=== PATIENT | female | born 1980 | race Hispanic/Latino ===

== ENCOUNTER 2018-01-29 03:36 | Observation (INO) | payer BC, OTHER ==
[2018-01-29] VITALS (7 sets, daily range): BP systolic 116–124; BP diastolic 63–75
[~2018-01-29] VITALS: Ht 172.7 cm; Wt 91.2 kg
[2018-01-29] MEDS ORDERED: METHYLPREDNISOLONE SOD SUCC 125 MG/2ML VIAL ONE (03:41)
[2018-01-29] MEDS ORDERED: EPINEPHRINE HCL INJ 1 MG/ML AMP ONE (03:42)
[2018-01-29] MEDS ORDERED: FAMOTIDINE 20 MG/2 ML VIAL IV ONE (03:42)
[2018-01-29] MEDS ORDERED: DIPHENHYDRAMINE HCL INJ 50 MG/ML VIAL ONE (03:42)
[2018-01-29] MEDS ORDERED: ALBUTEROL SULF 0.083% NEB SOLN 3 ML NEB ONE (03:44)
[2018-01-29] MEDS ORDERED: SODIUM CHLORIDE 0.9% 1000ML 1,000 ML ONE (03:45)
[2018-01-29] MEDS ORDERED: EPINEPHRINE 0.3 MG/0.3 ML PEN.INJCTR SC STA (03:52)
[2018-01-29] MEDS ORDERED: METHYLPREDNISOLONE SOD SUCC 125 MG/2ML VIAL IV STA (03:52)
[2018-01-29] MEDS ORDERED: SODIUM CHLORIDE 0.9% 1000ML 1,000 ML IV STA (03:52)
[2018-01-29] MEDS ORDERED: FAMOTIDINE 20 MG/2 ML VIAL IV STA (03:52)
[2018-01-29] MEDS ORDERED: DIPHENHYDRAMINE HCL INJ 50 MG/ML VIAL IV ONE (04:00)
[2018-01-29] MEDS: ALBUTEROL SULF 0.083% NEB SOLN 3 ML NEB NEB PRN ×2 (04:00→12:40)
[2018-01-29 04:18] LABS: BASOPHILS % 0.3 % (0.0-1.0); EOSINOPHILS # (AUTO) 0.2 (0.0-0.4); EOSINOPHILS % 1.6 % (0.0-6.0); HEMATOCRIT 41.5 % (34.2-44.1); HEMOGLOBIN 13.4 g/dL (12.0-16.0); LYMPHOCYTES % 50.5 % (18.0-39.1); MEAN CORPUSCULAR HGB CONC 32.3 g/dL (31-35); MONOCYTES # (AUTO) 0.7 (0.2-0.8); MONOCYTES % 6.9 % (4.4-11.3); NEUTROPHILS % 40.4 % (38.7-80.0); PLATELET COUNT 244 x10e3/uL (140-360); RED BLOOD COUNT 4.46 x10e6/uL (3.6-5.1); RED CELL DISTRIBUTION WIDTH 12.8 % (11.7-14.4)
[2018-01-29 04:33] LABS: INR 1.27; PROTHROMBIN TIME 14.9 seconds (11.9-14.5)
[2018-01-29 04:35] LABS: PARTIAL THROMBOPLASTIN TIME 50.7 seconds (23.8-35.5)
[2018-01-29 04:43] LABS: ALANINE AMINOTRANSFERASE 24 IU/L (0-55); ALBUMIN 3.2 g/dL (3.5-5.0); ALBUMIN/GLOBULIN RATIO 0.9 (0.8-2.0); ALKALINE PHOSPHATASE 137 IU/L (40-150); ANION GAP 15.6 mmol/L (8-16); BLOOD UREA NITROGEN 16 mg/dL (7-26); BUN/CREATININE RATIO 19 (6-25); CALCIUM 8.7 mg/dL (8.4-10.2); CARBON DIOXIDE 18 mmol/L (22-29); CHLORIDE 110 mmol/L (98-107); CREATINE KINASE 100 IU/L (29-168); CREATININE, SERUM 0.83 mg/dL (0.57-1.11); EST GLOMERULAR FILTRATION RATE > 60 ML/MIN (60-); GLUCOSE 101 mg/dL (74-118); MAGNESIUM 2.1 MG/DL (1.3-2.1); POTASSIUM 3.6 mmol/L (3.5-5.1); SODIUM 140 mmol/L (136-145)
[2018-01-29] MEDS: SODIUM CHLORIDE 0.9% 1000ML 1,000 ML IV SCH ×2 (05:44→14:00)
[2018-01-29] MEDS ORDERED: DIPHENHYDRAMINE HCL INJ 50 MG/ML VIAL IV SCH (09:00)
--- NOTE | 2018-01-29 09:27 | History and Physical ---
Patient was admitted through the emergency room with acute allergic reaction after eating flautas in a restaurant. Facial swelling, throat swelling, and shortness of breath. Feeling faint and chest tightness. ALLERGIES: SHE IS NOTED TO HAVE AN ALLERGY TO CASHEWS. NO OTHER NUTS, BUT INCLUDING PECANS. 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 Had been previously prescribed an EpiPen and Benadryl, but they were out of date. Still complaining of nasal congestion and some chest tightness. MEDICATIONS: Takes no regular medications. Nonsmoker. No alcohol. She is somewhat swollen in the face and eyes. Some chest discomfort and heavy, but has improved since the emergency room. PHYSICAL EXAMINATION VITAL SIGNS: Temperature 99, pulse 84, respirations 20, blood pressure 116/64. HEENT: Moderate facial swelling and periorbital edema. LUNGS: Clear. HEART: Regular rhythm. ABDOMEN: Nontender. EXTREMITIES: Not edematous. IMPRESSION: Allergic reaction to wheat glumes. She was warned not to eat out and avoid nuts, and nut-containing products. She was advised to see an blasting helper. Carry EpiPen and Benadryl. Continue moderate dose steroids, Benadryl, Pepcid. Was treated in the emergency room with epinephrine, Benadryl, Solu-Medrol, and Pepcid. Slowly improving. Angioneurotic edema with bronchospasm. Presumed peanut allergy. Job#: [id number] MIREILLE
[2018-01-29] MEDS: FAMOTIDINE 20 MG/2 ML VIAL IV SCH ×2 (09:30→16:31)
[2018-01-29] MEDS ORDERED: METHYLPREDNISOLONE SOD SUCC 40 MG/ML VIAL IV SCH (10:00)
[2018-01-29] MEDS ORDERED: METHYLPREDNISOLONE SOD SUCC 125 MG/2ML VIAL IV SCH ×2 (10:00)
--- NOTE | 2018-01-29 10:21 | Diagnostic Imaging Report ---
PROCEDURE: Frontal and lateral views of the chest. COMPARISON: Chest radiograph 06/08/2008. INDICATIONS: ACUTE BRONCHOSPASM FINDINGS: Lines/tubes: None. Lungs: Low lung volumes. No evidence of pneumonia or pulmonary edema. Mild bibasilar atelectasis. Mild diffuse bronchial wall thickening. Pleura: There is no pleural effusion or pneumothorax. Heart and mediastinum: The cardiomediastinal silhouette is unremarkable. Bones: No acute bony abnormality. IMPRESSION: No evidence of pneumonia. Mild bronchial wall thickening which could reflect bronchitis. Dictated by: ANTWAN ARRIOLA M.D. on 01/29/2018 at 9:53 Electronically approved by: ANTWAN ARRIOLA M.D. on 01/29/2018 at 9:53
[2018-01-29] MEDS ORDERED: DIPHENHYDRAMINE HCL INJ 50 MG/ML VIAL IV PRN (13:30)
[2018-01-29] MEDS: DIPHENHYDRAMINE HCL INJ 50 MG/ML VIAL IV SCH ×2 (14:27→20:28)
[2018-01-29] MEDS: PREDNISOLONE ACETATE 1% OPTH SUSP 5 ML BTL OP SCH (16:31)
[2018-01-29] MEDS: FLUTICASONE PROPIONATE NASAL SPRAY NS SCH (16:31)
[2018-01-29] MEDS: METHYLPREDNISOLONE SOD SUCC 40 MG/ML VIAL IV SCH (17:00)
[2018-01-30] VITALS: BP 108/68
[2018-01-30] MEDS: SODIUM CHLORIDE 0.9% 1000ML 1,000 ML IV SCH ×3 (01:16→12:46)
[2018-01-30] MEDS: DIPHENHYDRAMINE HCL INJ 50 MG/ML VIAL IV SCH ×4 (02:12→21:17)
[2018-01-30] MEDS: METHYLPREDNISOLONE SOD SUCC 40 MG/ML VIAL IV SCH ×3 (02:12→17:00)
[2018-01-30 04:00] VITALS: BP 110/60
[2018-01-30 05:54] LABS: ANION GAP 11.1 mmol/L (8-16); BLOOD UREA NITROGEN 9 mg/dL (7-26); BUN/CREATININE RATIO 12 (6-25); CALCIUM 8.6 mg/dL (8.4-10.2); CARBON DIOXIDE 20 mmol/L (22-29); CHLORIDE 109 mmol/L (98-107); CREATININE, SERUM 0.73 mg/dL (0.57-1.11); EST GLOMERULAR FILTRATION RATE > 60 ML/MIN (60-); GLUCOSE 147 mg/dL (74-118); POTASSIUM 4.1 mmol/L (3.5-5.1); SODIUM 136 mmol/L (136-145)
[2018-01-30 06:50] LABS: BASOPHILS % 0.1 % (0.0-1.0); HEMATOCRIT 36.5 % (34.2-44.1); LYMPHOCYTES # (AUTO) 1.3 (1.0-3.2); LYMPHOCYTES % 5.8 % (18.0-39.1); MEAN CORPUSCULAR HEMOGLOBIN 29.9 pg (28-32); MEAN CORPUSCULAR HGB CONC 33.4 g/dL (31-35); MONOCYTES # (AUTO) 0.4 (0.2-0.8); MONOCYTES % 1.8 % (4.4-11.3); NEUTROPHILS # (AUTO) 19.5 (2.1-6.9); NEUTROPHILS % 91.5 % (38.7-80.0); PLATELET COUNT 267 x10e3/uL (140-360); RED BLOOD COUNT 4.08 x10e6/uL (3.6-5.1); RED CELL DISTRIBUTION WIDTH 12.8 % (11.7-14.4)
[2018-01-30 06:53] LABS: MEAN CORPUSCULAR VOLUME 89.5 fL (81-99)
[2018-01-30 06:54] LABS: HEMOGLOBIN 12.2 g/dL (12.0-16.0)
[2018-01-30] MEDS: ALBUTEROL SULF 0.083% NEB SOLN 3 ML NEB NEB PRN (07:00)
[2018-01-30 07:59] VITALS: BP 114/61
[2018-01-30] MEDS: FAMOTIDINE 20 MG/2 ML VIAL IV SCH ×2 (08:53→16:11)
[2018-01-30] MEDS: FLUTICASONE PROPIONATE NASAL SPRAY NS SCH ×2 (08:54→16:11)
[2018-01-30] MEDS: PREDNISOLONE ACETATE 1% OPTH SUSP 5 ML BTL OP SCH ×2 (08:54→16:11)
[2018-01-30 12:12] VITALS: BP 119/77
[2018-01-30 16:02] VITALS: BP 118/64
[2018-01-30 20:17] VITALS: BP 132/78
[2018-01-31] VITALS (10 sets, daily range): BP systolic 98–140; BP diastolic 57–81
[2018-01-31] MEDS: METHYLPREDNISOLONE SOD SUCC 40 MG/ML VIAL IV SCH (02:21)
[2018-01-31] MEDS: SODIUM CHLORIDE 0.9% 1000ML 1,000 ML IV SCH ×2 (02:21→20:56)
[2018-01-31] MEDS: DIPHENHYDRAMINE HCL INJ 50 MG/ML VIAL IV SCH (02:42)
[2018-01-31 05:23] LABS: BASOPHILS % 0.1 % (0.0-1.0); HEMATOCRIT 36.9 % (34.2-44.1); HEMOGLOBIN 12.1 g/dL (12.0-16.0); LYMPHOCYTES # (AUTO) 1.6 (1.0-3.2); LYMPHOCYTES % 7.6 % (18.0-39.1); MEAN CORPUSCULAR HEMOGLOBIN 29.8 pg (28-32); MEAN CORPUSCULAR HGB CONC 32.8 g/dL (31-35); MEAN CORPUSCULAR VOLUME 90.9 fL (81-99); MONOCYTES # (AUTO) 0.6 (0.2-0.8); MONOCYTES % 2.8 % (4.4-11.3); NEUTROPHILS # (AUTO) 18.5 (2.1-6.9); NEUTROPHILS % 88.6 % (38.7-80.0); PLATELET COUNT 270 x10e3/uL (140-360); RED BLOOD COUNT 4.06 x10e6/uL (3.6-5.1)
[2018-01-31 05:45] LABS: ANION GAP 12.4 mmol/L (8-16); BLOOD UREA NITROGEN 18 mg/dL (7-26); BUN/CREATININE RATIO 23 (6-25); CALCIUM 8.6 mg/dL (8.4-10.2); CARBON DIOXIDE 21 mmol/L (22-29); CHLORIDE 110 mmol/L (98-107); EST GLOMERULAR FILTRATION RATE > 60 ML/MIN (60-); GLUCOSE 126 mg/dL (74-118); POTASSIUM 4.4 mmol/L (3.5-5.1); SODIUM 139 mmol/L (136-145)
[2018-01-31] MEDS ORDERED: AZITHROMYCIN 250 MG TAB PO NR (08:30)
[2018-01-31] MEDS ORDERED: DIPHENHYDRAMINE HCL 25 MG CAP PO PRN (08:30)
[2018-01-31] MEDS: AZITHROMYCIN 250 MG TAB PO SCH (08:47)
[2018-01-31] MEDS: FAMOTIDINE 20 MG/2 ML VIAL IV SCH ×2 (09:27→16:45)
[2018-01-31] MEDS: PREDNISONE 20 MG TAB PO SCH ×2 (09:28→20:38)
[2018-01-31] MEDS: PREDNISOLONE ACETATE 1% OPTH SUSP 5 ML BTL OP SCH ×2 (09:28→16:33)
[2018-01-31] MEDS: FLUTICASONE PROPIONATE NASAL SPRAY NS SCH ×2 (09:28→16:33)
[2018-02-01 00:05] VITALS: BP 126/67
[2018-02-01 04:26] VITALS: BP 108/63
[2018-02-01 07:34] VITALS: BP 122/83
[2018-02-01 07:41] VITALS: BP 122/83
[2018-02-01] MEDS: PREDNISOLONE ACETATE 1% OPTH SUSP 5 ML BTL OP SCH (08:52)
[2018-02-01] MEDS: FLUTICASONE PROPIONATE NASAL SPRAY NS SCH (08:52)
[2018-02-01] MEDS: PREDNISONE 20 MG TAB PO SCH (09:01)
[2018-02-01] MEDS: FAMOTIDINE 20 MG/2 ML VIAL IV SCH (09:01)
[2018-02-01] MEDS: AZITHROMYCIN 250 MG TAB PO SCH (09:01)
[2018-02-01 12:16] VITALS: BP 105/60
[2018-02-01] MEDS ORDERED: AZITHROMYCIN250 MG PO (12:57)
[2018-02-01] MEDS ORDERED: Diphenhydramine Hcl PO (12:57)
[2018-02-01] MEDS ORDERED: Fluticasone Propionate NS (12:57)
[2018-02-01] MEDS ORDERED: EPINEPHRINE 11 MG/ML SC (12:57)
[2018-02-01] MEDS ORDERED: PREDNISONE20 MG PO (12:57)
[2018-02-01] MEDS ORDERED: EPINEPHRIN0.3 MG/0.3 SC (13:26)
[2018-02-01] MEDS ORDERED: ZITHROMAX250 MG (13:27)
[2018-02-01 14:10] LABS: BASOPHILS % 0.2 % (0.0-1.0); HEMATOCRIT 40.3 % (34.2-44.1); HEMOGLOBIN 13.1 g/dL (12.0-16.0); LYMPHOCYTES # (AUTO) 1.9 (1.0-3.2); LYMPHOCYTES % 15.1 % (18.0-39.1); MEAN CORPUSCULAR HEMOGLOBIN 29.5 pg (28-32); MEAN CORPUSCULAR HGB CONC 32.5 g/dL (31-35); MEAN CORPUSCULAR VOLUME 90.8 fL (81-99); MONOCYTES # (AUTO) 0.7 (0.2-0.8); MONOCYTES % 5.7 % (4.4-11.3); NEUTROPHILS # (AUTO) 9.9 (2.1-6.9); NEUTROPHILS % 77.7 % (38.7-80.0); PLATELET COUNT 288 x10e3/uL (140-360); RED BLOOD COUNT 4.44 x10e6/uL (3.6-5.1); RED CELL DISTRIBUTION WIDTH 12.8 % (11.7-14.4)
--- NOTE | 2018-02-01 14:56 | Discharge Summary ---
Patient was admitted through the emergency room with acute allergic reaction after eating flautas in a restaurant with facial swelling, throat swelling, shortness of breath, chest tightness and feeling faint. She knows she is allergic to cashews and pecans. 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 She was treated with steroids, epinephrine, Pepcid, and Benadryl and gradually improved. She was felt to have angioneurotic edema, presumably related to peanuts or peanut oil. She did slowly improve. There was some chest tightness. There were infiltrates on chest x-ray, felt to be likely allergic, but she did have slight elevation of fever and significant elevation in white count. She was started on Zithromax. The patient gradually improved and is discharged. She was given a prescription for EpiPen. Benadryl hekw-pde-gqyahhb can be obtained without prescription. She was warned to avoid nuts and to see an gluer and slicer hand for further evaluation of her apparent peanut allergy and other nut allergies. She was advised not to eat in restaurants until she can be further evaluated by the gluer and slicer hand and that it might be best for her to avoid restaurants in the future in any event. She was discharged much improved at her request and given a prescription for azithromycin and epinephrine and Benadryl. JOSE BLUE MD Job#: [id number]
== END 2018-02-01 14:16 | disposition home or self-care (01) ==
LOC: ER 03:36 → IMCU 04:46
PROVIDERS: ADMIT Internal Medicine; ATTEND Internal Medicine
DX: T78.3XXA Angioneurotic edema, initial encounter (principal); Z91.010 Allergy to peanuts; J98.01 Acute bronchospasm; T78.1XXA Other adverse food reactions, not elsewhere classified, initial encounter
CPT/HCPCS: 36415 ×4; 71046; 80048 ×2; 80053; 82550; 82553; 83735; 84484; 84702; 85025 ×4; 85610; 85730; 93005; 94640 ×3; 96360; 96374; 96375; 99284; G0378 ×4; J0171; J1200 ×3; J2920 ×3; J2930; J7030 ×3

== ENCOUNTER 2020-05-12 18:29 | Emergency (ER) | payer BC, OTHER ==
[~2020-05-12] VITALS: Ht 170.2 cm; Wt 86.2 kg
[~2020-05-12 18:29] MED LIST: AZITHROMYCIN250 MG PO; Diphenhydramine Hcl PO; EPINEPHRIN0.3 MG/0.3 SC; EPINEPHRINE 11 MG/ML SC; Fluticasone Propionate NS; PREDNISONE20 MG PO; ZITHROMAX250 MG
[2020-05-12] MEDS ORDERED: EPINEPHRINE 2.25% INH NEBU SOL 0.5 ML VIAL INH STA (18:37)
[2020-05-12] MEDS ORDERED: FAMOTIDINE 20 MG/2 ML VIAL IV STA (18:43)
--- NOTE | 2020-05-12 18:54 | NUR ---
Pt able to speak clearly without getting SOB. No stridor noted while patient speaking.
[2020-05-12] MEDS ORDERED: FAMOTIDINE 20 MG/2 ML VIAL IV ONE (18:57)
--- OUTSIDE RECORDS SUMMARY | 2020-05-12 18:57 | XMS REPORT | Continuity of Care Document ---
Author Author [facility] t Organization [facility] Address [address] [place] [address] Phone Unavailable Care Team Providers Care Township Clerk Name Role Phone NONSTAFF PCP Unavailable KAROL, GONZALEZ Attphys Unavailable KAROL, GONZALEZ Admphys Unavailable Payers Payer Name Policy Type Policy Number Effective Date Expiration Date [facility] [id number] I [facility] Problems Condition Name Condition Details Condition Category Status Onset Date Resolution Date Last Treatment Date Treating Clinician Comments Source Acute bronchospasm Acute bronchospasm Problem Active [facility] Allergic angioedema Allergic angioedema Problem Active [facility] Allergic reaction Allergic reaction Problem Active [facility] Allergies, Adverse Reactions, Alerts Allergy Name Allergy Type Status Severity Reaction(s) Onset Date Inacti ve Date Treating Clinician Comments Source Peanuts Allergy to Substance Active Severe 2018-01-29 00:00:00 [facility] peanut FA Active SV 2013-07-14 00:00:00 [facility] Medications Ordered Medication Name Filled Medication Name Start Date Stop Da te Current Medication? Ordering Clinician Indication Dosage Frequency Signature (SIG) Comments Components Source Azithromycin (Zithromax) 250 Mg Tablet Azithromycin (Zithromax) 250 Mg Tablet Yes Daily [facility] Epinephrine 0.3 Mg/0.3 Ml Pen.injctr Epinephrine 0.3 Mg/0.3 Ml Pen. injctr Yes as needed for Allergy CH I [facility] Procedures Procedure Date / Time Performed Performing Clinician [facility] e X-ray of chest, two views 2018-01-29 00:00:00 JOSE BLUE [facility] Encounters Start Date/Time End Date/Time Encounter Type Admission Type Attendi [facility] Care Department Encounter ID Source 2018-01-29 04:46:00 2018-02-01 14:16:00 Discharged Inpatient (obs) [id number] Results Test Description Test Time Test Comments Results Result Comments Source Novel Coronavirus 2018 nCoV 2019-12-04 15:11:00 Test Item Novel Coronavirus 2018 nCoV (test code = COVID19) Positive Nega tive A Performed by: [facility] [address], [address] [place], [place] [address] CLIA#: [id number] Does patient have the clinical criteria consistent with COVID-19? YIs the patien t going to be discharged home? YHCG SERUM [id number] 07:11:00* Test Item Value Reference Range Interpretation Comments HCG SERUM QUAL (test code = HCGQL) SERUM NEGATIVE NEGATIVE - XR CHEST 1 [id number] 06:37:00 FAX: Tucker Elkins MD [phone] Terry: St: REG Name: KAREN CAMPA [facility] : [birth year] Age/S: 39/F [address] [place] [address] Blvd Unit #: [id number] Loc: [place] [address] Phys: Tucker Elkins MD Acct: [id number] Dis Date: Status: REG ER PHONE #: [phone] Exam Date: 12/02/2019 0630 FAX #: [phone] Reason: cough, SOB, fever EXAMS: CPT CODE: [id number] XR CHEST 1 V 19940 Study: - XR CHEST 1 V 12/02/2019 6:05 AM Patient Name: KAREN MALIK MR: [id number] : [birth year]; Age: 39 years y/o Female Ordering Physician: Tucker Elkins MD Clinical Indication: cough, shortness of breath, fever Comparison: None FINDINGS LUNGS: The mildly hypoinf lated lungs are clear of consolidation, pleural effusion, and pneumothorax . HEART AND MEDIASTINUM: Normal size heart. LINES: N one. OSSEOUS STRUCTURES: No fracture, dislocation, or suspicious f ocal osseous lesion. OTHER: None. IM PRESSION: Mildly hypoinflated, but clear lungs. SL: TPAINTER-H at 0637 Reported and signed by: Wade Marrero M.D. CC: Tucker Elkins MD Technologist: RT Abraham(R) Trnscrd Date/Time/By: 12/02/2019 (0637) : By: [email or web address] Orig Print D/T: S: 12/02/2019 (0602) PAGE 1 Signed Report White Blood [id number] 14:13:00* Test Item Value Reference Range Interpretation Comments White Blood Count (test code = 6690-2) 12.75 4.8-10.8 H [facility] Blood [id number] 14:13:00* Test Item Value Reference Range Interpretation Comments Red Blood Count (test code = 789-8) 4.44 3.6-5.1 [facility]emoglobin2018-08-16 14:13:00* Test Item Value Reference Range Interpretation Comments Hemoglobin (test code = 66053-7) 13.1 12.0-16.0 [facility]Hematocrit2018-08-16 14:13:00* Test Item Value Reference Range Interpretation Comments Hematocrit (test code = 4544-3) 40.3 34.2-44.1 [facility]cosMean Corpuscular Picwus8722-07-68 14:13:00* Test Item Value Reference Range Interpretation Comments Mean Corpuscular Volume (test code = 787-2) 90.8 81-99 [facility]Mean Corpuscular Kttzozhynr2593-21-81 14:13:00* Test Item Value Reference Range Interpretation Comments Mean Corpuscular Hemoglobin (test code = 785-6) 29.5 28-32 [facility]cosMean Corpuscular Hemoglobin Concent 2018-02-01 14:13:00* Test Item Value Reference Range Interpretation Comments Mean Corpuscular Hemoglobin Concent (test code = 786-4) 32.5 31-35 [facility]cosRed Cell Distribution [id number] 14:13:00* Test Item Value Reference Range Interpretation Comments Red Cell Distribution Width (test code = 15674-0) 12.8 11.7 -14.4 [facility]Platelet [id number] 14:13:00* Test Item Value Reference Range Interpretation Comments Platelet Count (test code = 777-3) 288 140-360 [facility]Neutrophils (%) (Auto)2018-02-01 14:13:00 * Test Item Value Reference Range Interpretation Comments Neutrophils (%) (Auto) (test code = 47565-8) 77.7 38.7-80.0 [facility]Lymphocytes (%) (Auto)2018-02-01 14:13:00 * Test Item Value Reference Range Interpretation Comments Lymphocytes (%) (Auto) (test code = 736-9) 15.1 18.0-39.1 L [facility]Monocytes (%) (Auto)2018-02-01 14:13:00* Test Item Value Reference Range Interpretation Comments Monocytes (%) (Auto) (test code = 5905-5) 5.7 4.4-11.3 [facility]Eosinophils (%) (Auto)2018-02-01 14:13:00 * Test Item Value Reference Range Interpretation Comments Eosinophils (%) (Auto) (test code = 713-8) 0.0 0.0-6.0 [facility]Basophils (%) (Auto)2018-02-01 14:13:00* Test Item Value Reference Range Interpretation Comments Basophils (%) (Auto) (test code = 706-2) 0.2 0.0-1.0 [facility]cosIM GRANULOCYTES %2018-02-01 14:13:00* Test Item Value Reference Range Interpretation Comments IM GRANULOCYTES % (test code = IM GRANULOCYTES %) 1.3 0.0- 1.0 H [facility]Neutrophils # (Auto)2018-02-01 14:13:00* Test Item Value Reference Range Interpretation Comments Neutrophils # (Auto) (test code = 751-8) 9.9 2.1-6.9 H [facility]Lymphocytes # (Auto)2018-02-01 14:13:00* Test Item Value Reference Range Interpretation Comments Lymphocytes # (Auto) (test code = 77992-2) 1.9 1.0-3.2 [facility]Monocytes # (Auto)2018-02-01 14:13:00* Test Item Value Reference Range Interpretation Comments Monocytes # (Auto) (test code = 742-7) 0.7 0.2-0.8 [facility]Eosinophils # (Auto)2018-02-01 14:13:00* Test Item Value Reference Range Interpretation Comments Eosinophils # (Auto) (test code = 711-2) 0.0 0.0-0.4 [facility]Basophils # (Auto)2018-02-01 14:13:00* Test Item Value Reference Range Interpretation Comments Basophils # (Auto) (test code = 704-7) 0.0 0.0-0.1 [facility] MarcosAbsolute Immature Granulocyte (auto 2018-02-01 14:13:00* Test Item Value Reference Range Interpretation Comments Absolute Immature Granulocyte (auto (isabell t code = Absolute Immature Granulocyte (auto) 0.17 0-0.1 [facility] Pscpy4803-01-92 05:47:00* Test Item Value Reference Range Interpretation Comments Sodium Level (test code = 2951-2) 139 136-145 [facility]cosPotassium Oecss4026-42-72 05:47:00* Test Item Value Reference Range Interpretation Comments Potassium Level (test code = 2823-3) 4.4 3.5-5.1 [facility]cosChloride Ksbux8326-37-36 05:47:00* Test Item Value Reference Range Interpretation Comments Chloride Level (test code = 2075-0) 110 98-107 H [facility] MarcosCarbon Dioxide Gxhft9751-14-73 05:47:00* Test Item Value Reference Range Interpretation Comments Carbon Dioxide Level (test code = 2028-9) 21 22-29 L [facility] MarcosAnion Alz0426-74-99 05:47:00* Test Item Value Reference Range Interpretation Comments Anion Gap (test code = 88387-6) 12.4 8-16 [facility]cosBlood Urea Eecoyogu4104-73-55 05:47:00* Test Item Value Reference Range Interpretation Comments Blood Urea Nitrogen (test code = 3094-0) 18 7-26 [facility]cosCreatinine2018-08-15 05:47:00* Test Item Value Reference Range Interpretation Comments Creatinine (test code = 2160-0) 0.80 0.57-1.11 [facility]cosBUN/Creatinine Gfodf9980-53-41 05:47:00* Test Item Value Reference Range Interpretation Comments BUN/Creatinine Ratio (test code = 3097-3) 23 6-25 [facility] MarcosEstimat Glomerular Filtration Rate 2018-01-31 05:47:00* Test Item Value Reference Range Interpretation Comments Estimat Glomerular Filtration Rate (test code = 81519-9) 60- >60 Ranges were taken from the National Kidney Disease Education Program and the [place] [facility] hospital[facility] Kid[facility] Foundation literature.Reference ranges:60 or greater: Fxjfvf93-92 ( for 3 consecutive months): Chronic kidney disease 15 or less: Kidney failureChristus Santa Rosa Hospital – San MarcosGlucose Hefon2756-68-63 05:47:00* Test Item Value Reference Range Interpretation Comments Glucose Level (test code = MZN7945) 126 74-118 H [facility]cosCalcium Xnrcv0305-91-55 05:47:00* Test Item Value Reference Range Interpretation Comments Calcium Level (test code = 50559-4) 8.6 8.4-10.2 [facility]cosCHEST 2 [id number] 09:53:00 [facility] [address] [place] [address] Patient Name: KAREN MALIK MR #: [id number] : 0 1980 Age/Sex: 37/F Req #: [id number] Adm Physician: LISA ROBERSON MD Ordered by: JOSE BLUE MD Report #: [id number] Locatio n: [facility] Room/Bed: [place] [address] Procedure: [id number] DX/ CHEST 2 VIEWS Exam Date: 01/29/18 Exam Time: 0930 REPORT STATUS: Signed PROCEDURE: Frontal and lateral views of the chest. COMPARISON: Chest radiograph 06/08/2008. INDICATIONS: ACUTE BRON CHOSPASM FINDINGS: Lines/tubes: None. Lungs: Low lung volume s. No evidence of pneumonia or pulmonary edema. Mild bibasilar atelectasis. M ild diffuse bronchial wall thickening. Pleura: There is no pleural effus ion or pneumothorax. Heart and mediastinum: The cardiomediastinal silhoue tte is unremarkable. Bones: No acute bony abnormality. IMPRESSIO N: No evidence of pneumonia. Mild bronchial wall thickening which could reflect bronchitis. Dictated by: ANTWAN ARRIOLA M.D. on 01/29/2018 at 9:53 Electronically approved by: ANTWAN ARRIOLA M.D. on 01/29/2018 at 9:53 Dictated By: ANTWAN ARRIOLA MD 2 Transcribed By: CARL on 01/29/18952 COPY TO: EMILY BULE MD Troponin [id number] 05:19:00* Test Item Value Reference Range Interpretation Comments Troponin I (test code = QIR1987) 0.001 0-0.300 [facility] MarcosProthrombin Nboo7708-22-67 05:17:00* Test Item Value Reference Range Interpretation Comments Prothrombin Time (test code = 5902-2) 14.9 11.9-14.5 H [facility] MarcosProthromb Time International Ratio 2018-01-29 05:17:00* Test Item Value Reference Range Interpretation Comments Prothromb Time International Ratio (test code = 6301-6) 1.27 Oral Anticoagulant Therapy INR Values:1. Low Intensity Therapy 1.5 - 2.02 . Moderate Intensity Therapy 2.0 - 3.03. High Intensity Therapy(1) 2.5 - 3. 54. High Intensity Therapy(2) 3.0 - 4.05. Panic Value INR > 5.0 [facility] MarcosActivated Partial Thromboplast Time 2018-01-29 05:17:00* Test Item Value Reference Range Interpretation Comments Activated Partial Thromboplast Time (test code = 67951-2) 50.7 23.8-35.5 H [facility] MarcosCreatine Kinase [id number] 05:13:00* Test Item Value Reference Range Interpretation Comments Creatine Kinase MB (test code = 99003-4) 0.60 0-5.0 [facility] MarcosMagnesium Yxdpm2345-36-96 04:52:00* Test Item Value Reference Range Interpretation Comments Magnesium Level (test code = 67334-7) 2.1 1.3-2.1 [facility] MarcosTotal Mlgzvksvq4053-58-23 04:52:00* Test Item Value Reference Range Interpretation Comments Total Bilirubin (test code = 1975-2) 0.5 0.2-1.2 [facility] MarcosAspartate Amino Transf (AST/SGOT) 2018-01-29 04:52:00* Test Item Value Reference Range Interpretation Comments Aspartate Amino Transf (AST/SGOT) (test code = Aspartate Amino Transf (AST/SGOT)) 22 5-34 [facility] MarcosAlanine Aminotransferase (ALT/SGPT) 2018-01-29 04:52:00* Test Item Value Reference Range Interpretation Comments Alanine Aminotransferase (ALT/SGPT) (test code = 1742-6) 24 0-55 [facility] MarcosTotal Bnikjqs2674-60-37 04:52:00* Test Item Value Reference Range Interpretation Comments Total Protein (test code = 2885-2) 6.8 6.5-8.1 [facility] MarcosAlbumin2018-08-13 04:52:00* Test Item Value Reference Range Interpretation Comments Albumin (test code = 1751-7) 3.2 3.5-5.0 L [facility]cosGlobulin2018-08-13 04:52:00* Test Item Value Reference Range Interpretation Comments Globulin (test code = 14012-1) 3.6 2.3-3.5 H [facility] MarcosAlbumin/Globulin Drgxa9737-54-88 04:52:00 * Test Item Value Reference Range Interpretation Comments Albumin/Globulin Ratio (test code = 1759-0) 0.9 0.8-2.0 [facility]cosAlkaline Kcodsfwsfqk9830-79-97 04:52:00* Test Item Value Reference Range Interpretation Comments Alkaline Phosphatase (test code = 6768-6) 137 40-150 [facility] MarcosCreatine Erzrlj5767-35-79 04:52:00* Test Item Value Reference Range Interpretation Comments Creatine Kinase (test code = 2157-6) 100 29-168 [facility] San MarcosHuman Chorionic Gonadotropin, Qual 2018-01-29 04:39:00* Test Item Value Reference Range Interpretation Comments Human Chorionic Gonadotropin, Qual (test code = 2118-8) NEGATIVE NEGATIVE [facility]
--- NOTE | 2020-05-12 18:59 | Emergency Department Note ---
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 Any updates have been documented here. Past Medical History Recent Fever: No Clinical Suspicion of Infectio: No New/Unexplained Change in Ment: No Past Medical History: None Past Surgical History: None Other Surgery: RIGHT BREAST LYMPH REMOVED Social History Smoking Cessation: Never Smoker Alcohol Use: Occasional Any Illegal Drug Use: No Other Last Tetanus: UNKNOWN Any Pre-Existing Lines (PICC,: No Review of Systems Review of Systems Constitutional: Reports no symptoms EENTM: Reports no symptoms Cardiovascular: Reports no symptoms Respiratory: Reports as per HPI Gastrointestinal: Reports no symptoms Genitourinary: Reports no symptoms Musculoskeletal: Reports no symptoms Integumentary: Reports no symptoms Neurological: Reports no symptoms Psychological: Reports no symptoms Endocrine: Reports no symptoms Hematological/Lymphatic: Reports no symptoms Physical Exam Related Data Allergies: Coded Allergies: peanut (Verified Allergy, Severe, 01/29/18) Triage Vital Signs Vital Signs Date Time Temp Pulse Resp B/P (MAP) Pulse Ox O2 Delivery O2 Flow Rate FiO2 05/12/20 18:36 71 18 134/87 100 Room Air Vital signs reviewed: Yes Physical Exam CONSTITUTIONAL Constitutional: Present well-developed, Present well-nourished; Absent distressed HENT HENT: Present normocephalic, Present atraumatic, Present oropharynx clear/moist, Present nose normal HENT L/R: Present left ext ear normal, Present right ext ear normal EYES Eyes: Reports PERRL, Reports conjunctivae normal NECK Neck: Present ROM normal PULMONARY Pulmonary: Present effort normal, Present breath sounds normal, Present other (PT WITH MILD STRIDOR THAT ONLY OCCURS AT REST, NO STRIDOR WHEN TALKING) CARDIOVASCULAR Cardiovascular: Present regular rhythm, Present heart sounds normal, Present capillary refill normal, Present normal rate GASTROINTESTINAL Abdominal: Present soft, Present nontender, Present bowel sounds normal GENITOURINARY Genitourinary: Present exam deferred SKIN Skin: Present warm, Present dry MUSCULOSKELETAL Musculoskeletal: Present ROM normal NEUROLOGICAL Neurological: Present alert, Present oriented x 3, Present no gross motor or sensory deficits PSYCHOLOGICAL Psychological: Present mood/affect normal, Present judgement normal Results Imaging Imaging results reviewed: Yes Impressions Patient Name: KAREN MALIK MR #: [id number] : 1980 Age/Sex: 40/F Req #: [id number] Adm Physician: Ordered by: DIXNO ARROYO MD Report #: [id number] Location: Room/Bed: Procedure: [id number] CT/CT CHEST WO Exam Date: 05/12/20 Exam Time: 2150 REPORT STATUS: Signed EXAM: CT Chest WITHOUT contrast INDICATION: ^Y ^eval findings on cxr ^20200512 ^2150 ^Y COMPARISON: Same day chest x-ray TECHNIQUE: Chest was scanned utilizing a multidetector helical scanner from the lung apex through the level of the adrenal glands without administration of IV contrast. Absence of intravenous contrast decreases sensitivity for detection of lymphadenopathy and vascular pathology. Coronal and sagittal reformations were obtained. Routine protocol was performed. IV CONTRAST: None COMPLICATIONS: None RADIATION DOSE: Total DLP: 512.88 mGy*cm Estimated effective dose: (DLP x 0.014 x size factor) mSv CTDIvol has been reviewed. It is below the limits set by the Radiation Protocol Committee (RPC). FINDINGS: LINES/ TUBES: None. LUNGS AND AIRWAYS: The lungs are unremarkable. No focal infiltrate. Airways are normal. PLEURA: The pleural spaces are clear. HEART AND MEDIASTINUM: The thyroid gland is normal. No mediastinal, hilar or axillary lymphadenopathy. The heart is normal in size.. There is no pericardial effusion. UPPER ABDOMEN: Unremarkable. BONES: The visualized bony thorax is within normal limits. SOFT TISSUES: Unremarkable. IMPRESSION: Unremarkable chest CT. Signed by: Dr. Ty Vickers MD on 05/12/2020 10:21 PM Dictated By: TY VICKERS MD 20 Transcribed By: JOSÉ LUIS on 05/12/202220 COPY TO: DIXON ARROYO MD~ Procedure: [id number] DX/CHEST SINGLE (PORTABLE) Exam Date: 05/12/20 Exam Time: 1950 REPORT STATUS: Signed EXAMINATION: CHEST SINGLE (PORTABLE) INDICATION: SOB COMPARISON: None FINDINGS: AP view TUBES and LINES: None. . LUNGS/PLEURA: Lungs are well inflated. Bibasilar opacities are nonspecific could be due to atelectasis. There is no pleural effusion or pneumothorax. HEART AND MEDIASTINUM: The cardiomediastinal silhouette is unremarkable. BONES AND SOFT TISSUES: No acute osseous lesion. Soft tissues are unremarkable. UPPER ABDOMEN: No free air under the diaphragm. IMPRESSION: Bibasilar opacities are nonspecific could be due to atelectasis. Pneumonia could be considered in the appropriate clinical setting. Signed by: Donaldo Alvarez MD on 05/12/2020 8:48 PM Dictated By: DONALDO ALVAREZ MD 47 Transcribed By: JOSÉ LUIS on 05/12/202047 COPY TO: DIXON ARROYO MD~ Assessment & Plan Medical Decision Making MDM PT WITH REACTION TO NUTS RACEMIC EPI NEB ORDERED PEPCID 20 MG IV CXR ORDERED TO EVAL FOR PULMONARY EDEMA Reassessment Reassessment time: 20:26 Reassessment pt sleeping, easily aroused, no stridor present, lungs cta bilateral Assessment & Plan Final Impression: (1) Allergic reaction Depart Disposition: HOME, SELF-CARE Last Vital Signs Date Time Temp Pulse Resp B/P (MAP) Pulse Ox O2 Delivery O2 Flow Rate FiO2 05/12/20 18:36 71 18 134/87 100 Room Air Home Meds Reported Medications Azithromycin (ZITHROMAX) 250 Mg Tablet, MG DAILY for 7 Days 02/01/18 Epinephrine (EPINEPHRINE) 0.3 Mg/0.3 Ml Pen.injctr, SC PRN for ALLERGY 02/01/18 Medications in the ED Epinephrine 0.5 ml NOW STAT INH ; Start 05/12/20 at 18:37; Stop 05/12/20 at 18:38; Status DC Famotidine 20 mg NOW STAT IV ; Start 05/12/20 at 18:43; Stop 05/12/20 at 18:49; Status DC Famotidine 20 mg STK-MED ONCE IV ; Start 05/12/20 at 18:57; Stop 05/12/20 at 18:50; Status DC DIXON ARROYO MD May 12, 2020 18:59
--- NOTE | 2020-05-12 19:15 | NUR ---
Bedside shift report and care hand off given to JIMMY Vasques.
--- NOTE | 2020-05-12 20:51 | Diagnostic Imaging Report ---
EXAMINATION: CHEST SINGLE (PORTABLE) INDICATION: SOB COMPARISON: None FINDINGS: AP view TUBES and LINES: None. . LUNGS/PLEURA: Lungs are well inflated. Bibasilar opacities are nonspecific could be due to atelectasis. There is no pleural effusion or pneumothorax. HEART AND MEDIASTINUM: The cardiomediastinal silhouette is unremarkable. BONES AND SOFT TISSUES: No acute osseous lesion. Soft tissues are unremarkable. UPPER ABDOMEN: No free air under the diaphragm. IMPRESSION: Bibasilar opacities are nonspecific could be due to atelectasis. Pneumonia could be considered in the appropriate clinical setting. Signed by: Donaldo Rodriguez MD on 05/12/2020 8:48 PM
--- NOTE | 2020-05-12 22:24 | Diagnostic Imaging Report ---
EXAM: CT Chest WITHOUT contrast INDICATION: ^Y ^eval findings on cxr ^20200512 ^2150 ^Y COMPARISON: Same day chest x-ray TECHNIQUE: Chest was scanned utilizing a multidetector helical scanner from the lung apex through the level of the adrenal glands without administration of IV contrast. Absence of intravenous contrast decreases sensitivity for detection of lymphadenopathy and vascular pathology. Coronal and sagittal reformations were obtained. Routine protocol was performed. IV CONTRAST: None COMPLICATIONS: None RADIATION DOSE: Total DLP: 512.88 mGy*cm Estimated effective dose: (DLP x 0.014 x size factor) mSv CTDIvol has been reviewed. It is below the limits set by the Radiation Protocol Committee (RPC). FINDINGS: LINES/ TUBES: None. LUNGS AND AIRWAYS: The lungs are unremarkable. No focal infiltrate. Airways are normal. PLEURA: The pleural spaces are clear. HEART AND MEDIASTINUM: The thyroid gland is normal. No mediastinal, hilar or axillary lymphadenopathy. The heart is normal in size.. There is no pericardial effusion. UPPER ABDOMEN: Unremarkable. BONES: The visualized bony thorax is within normal limits. SOFT TISSUES: Unremarkable. IMPRESSION: Unremarkable chest CT. Signed by: Dr. Ty Wray MD on 05/12/2020 10:21 PM
[2020-05-12 22:54] VITALS: BP 114/82
== END 2020-05-12 23:15 | disposition home or self-care (01) ==
LOC: ER 18:36
DX: R06.00 Dyspnea, unspecified (principal); T78.40XA Allergy, unspecified, initial encounter
CPT/HCPCS: 71045; 71250; 99284